=== PATIENT | male | born 1985 | race Caucasian/White ===

== ENCOUNTER 2020-09-25 20:28 | Emergency (ER) | payer OTHER ==
[~2020-09-25] VITALS: Ht 182.9 cm; Wt 104.3 kg
--- NOTE | 2020-09-25 20:45 | NUR ---
Called pt, no answer
[2020-09-25 21:10] VITALS: BP_SYST 133
--- NOTE | 2020-09-25 21:10 | NUR ---
Dr. Hsu exam patient at triage room.
--- NOTE | 2020-09-25 21:10 | NUR ---
Patient came to ER. C/O cough x 4 days. Patient had cough for 4 days, concerns about Covid -19, needs a test. A/O,X4, no respiraty distress, Oxygen sat 98 %RA.
--- NOTE | 2020-09-25 21:17 | NUR ---
Covid-19 swabs and send to lab.
[2020-09-25 22:02] VITALS: BP_SYST 133
--- NOTE | 2020-09-25 22:02 | NUR ---
Patient given written and verbal discharge instructions and verbalizes understanding. ER MD discussed with patient the results and treatment provided. Patient in stable condition. ID arm band removed. IV catheter removed intact and dressing applied, no active bleeding. No Rx given. Patient educated on pain management and to follow up with PMD. Pain Scale 1/10. Recommeded patient to quarantine and call for COVID results after 24 hours. Opportunity for questions provided and answered.
--- NOTE | 2020-09-26 19:31 | NUR ---
Called warehouser , reported positive test COVID-19 (PCR).
--- NOTE | 2020-09-27 09:48 | NUR ---
Patient was called by [facility] and notified his COVID-19 "Positive' result. Patient was instructed to follow home isolation instructions and to continuously follow preventive measures (universal source control). Patient verbalizes understanding.
== END 2020-09-25 22:02 | disposition home or self-care (01) ==
LOC: SED 20:28
DX: R05 Cough (principal); Z20.828 Contact with and (suspected) exposure to other viral communicable diseases
CPT/HCPCS: 99283; C9803; U0003